=== PATIENT | male | born 1955 | race Caucasian/White ===

== ENCOUNTER → 2016-09-10 | Day surgery (SDC) | payer OTHER ==
[~2016-09-10] VITALS: Ht 172.7 cm; Wt 90.5 kg
[~2016-09-10] MED LIST: ASPIRIN EC81 MG PO; HYZAAR 100-251 EACH PO; LIPITOR10 MG PO; MEGARED OMEGA-1 EAC1 PO; NEURONTIN300 MG PO; NUCYNTA100 MG PO; PERCOCET 5-3251 EACH PO; PLAVIX75 MG PO
--- NOTE | ~2016-09-10 | OR ---
PATIENT'S NAME: SONYA FITZPATRICK [facility] AGE: 61 Y [address] ROOM: [place] [address] LOCATION: [facility] [place] AD[place] DATE: 09/10/2016 OR/Procedure Report DISCHARGE DATE: FAMILY PHYSICIAN: Jakob Lemos MD ATTENDING PHYSICIAN: IBETH JAQUEZ SURGEON: Ibeth Jaquez MD LEAD RADIATION THERAPIST: Hamlet Dumont CST/RODEO CLOWN. DATE OF PROCEDURE: 09/10/2016 PREOPERATIVE DIAGNOSES: 1. Right knee medial meniscus tear. 2. Right knee degenerative joint disease. POSTOPERATIVE DIAGNOSES: 1. Right knee medial meniscus tear. 2. Right knee degenerative joint disease with unstable articular cartilage defects at patella and medial femoral condyle. 3. Lateral meniscus tear. 4. Multiple intra-articular loose bodies. PROCEDURES PERFORMED: 1. Right knee arthroscopy with partial medial and lateral meniscectomies. 2. Chondroplasty, patella. 3. Chondroplasty, medial femoral condyle. 4. Removal of multiple intra-articular loose bodies. ANESTHESIA: Subcutaneous and intra-articular local anesthesia plus intravenous sedation. DRAINS: None. SPECIMEN: None. COMPLICATIONS: None. ESTIMATED BLOOD LOSS: Less than 5 mL. IMPLANTS: None. INDICATION FOR PROCEDURE: Mr. Fitzpatrick is a 61-year-old male, presenting with acute painful mechanical symptoms at his right knee after an episode of trauma. Preoperative MRI has demonstrated a medial meniscus tear with associated articular cartilage lesions at the patella and medial compartment. Risks, benefits, limitations, and alternatives to surgery have been thoroughly reviewed, and informed consent has been granted. We have specifically PATIENT'S NAME: SONYA FITZPATRICK [facility] AGE: 61 Y [address] ROOM: [place] [address] LOCATION: [facility] [place] ADMIT DATE: 09/10/2016 OR/Procedure Report DISCHARGE DATE: FAMILY PHYSICIAN: Jakob Lemos MD ATTENDING PHYSICIAN: IBETH JAQUEZ reviewed risks and implications of infection, neurovascular complications, stiffness, as well as the potential for persistent and progressive discomfort related to his pre-existing degenerative changes. We have emphasized that arthroscopy is not capable of curing (or preventing the progression of) his pre-existing degenerative changes. He and his family understand and accept this. DESCRIPTION OF PROCEDURE: The patient was positioned supine. Intravenous sedation and prophylactic antibiotics were administered. The right lower extremity was prepped and draped with vigilant sterile technique. Examination under anesthesia demonstrated a large effusion. There were no active skin lesions or masses. There was no erythema. There was no abnormal warmth. There was no ligamentous insufficiency. Range of motion under anesthesia was from a 5-degree flexion contracture to 130 degrees of flexion. The right lower extremity was prepped and draped with vigilant sterile technique with a well-padded pneumatic tourniquet placed around the right proximal thigh. The knee was injected subcutaneously (at the sites of anticipated arthroscopy portal placement) as well as intra-articularly with 0.25% plain Marcaine. Standard inferomedial and inferolateral arthroscopy portals were established, and a thorough diagnostic arthroscopy of the right knee was performed with the following findings and interventions: There was a large hemarthrosis. 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 There were several flaps of unstable articular cartilage at the medial femoral condyle. These were debrided down to a stable base with the arthroscopic shaver. There was no exposed subchondral bone. There was extensive superficial softening and fraying of the articular cartilage at the medial and lateral tibial plateaus, but there were no high-grade partial-thickness defects at either the medial or the lateral tibial plateaus. There was a complex degenerative tear involving the posterior half of the medial meniscus and the inner perimeter of the anterior half of medial meniscus. There were several small inner perimeter radial tears and a small flap tear at the lateral meniscus. All unstable portions of the medial and lateral menisci were debrided back to a stable smoothly contoured rim. The remainder of the medial and lateral menisci was thoroughly visualized and thoroughly probed and confirmed to be stable and smoothly contoured. There were multiple loose bodies (ranging in size from 2 mm to 6 mm), consistent with loose bodies. These were encountered in the medial and lateral gutters as well as the suprapatellar pouch. There was hemosiderin staining at the medial and lateral gutters as well as the suprapatellar pouch and the synovium at the intercondylar notch. Cruciate ligaments were intact. PATIENT'S NAME: SONYA FITZPATRICK [facility] AGE: 61 Y [address] ROOM: [place] [address] LOCATION: [facility] [place]MIT DATE: 09/10/2016 OR/Procedure Report DISCHARGE DATE: FAMILY PHYSICIAN: Jakob Lemos MD ATTENDING PHYSICIAN: IBETH JAQUEZ There was a small osteophyte visualized at the medial femoral condyle through the medial gutter. There was extensive grade 3 chondromalacia at the patella and the femoral trochlea with deep fissuring and multiple small unstable flaps of articular cartilage. These were all debrided down to a stable base with the arthroscopic shaver. There was a 1.5 cm diameter region of full-thickness articular cartilage loss at the medial margin of the femoral trochlea. The entire joint space was thoroughly inspected one final time and thoroughly irrigated to be certain that all loose bodies had been extracted. All arthroscopic instrumentation was removed. Each of the two arthroscopy portals was closed with superficial buried interrupted 3-0 Monocryl suture, followed by Steri-Strips with benzoin. The dressings consisted of Xeroform gauze, followed by sterile 4x4 gauze, ABD pads, and an Alonso wrap. There were no complications. Postoperative Rehabilitation Plan: Twenty quadriceps isometric exercises per hour. Twenty ankle pumps per hour. Weightbearing as tolerated. Maximize ice and elevation and minimize activity level during the first 2 weeks. MD TOI [facility]/modl /[id number] d: 09/10/162013 t: 09/11/16 1006, OPERATIVE SUMMARY
== END | disposition disaster alternative care site (69) ==
LOC: GPOC 09-09 10:00 → GSDC 06:34
PROC: 0SBC4ZZ Excision of Right Knee Joint, Percutaneous Endoscopic Approach (ICD-10-PCS; principal; 2016-09-10)
PROC: 0SCC4ZZ Extirpation of Matter from Right Knee Joint, Percutaneous Endoscopic Approach (ICD-10-PCS; 2016-09-10)
DX: M23.203 Derangement of unspecified medial meniscus due to old tear or injury, right knee (principal); M23.200 Derangement of unspecified lateral meniscus due to old tear or injury, right knee; M17.11 Unilateral primary osteoarthritis, right knee; M23.41 Loose body in knee, right knee; I25.810 Atherosclerosis of coronary artery bypass graft(s) without angina pectoris; I10 Essential (primary) hypertension; E78.5 Hyperlipidemia, unspecified
CPT/HCPCS: J0690; J1100; J1885; J2001; J2270; J2405; J2765; J3010; J7120